=== PATIENT | female | born 1960 | race Caucasian/White ===

== ENCOUNTER 2017-11-03 00:17 | Emergency (ER) | payer MEDICAID ==
[2017-11-03] MEDS: LIDOCAINE/MYLANTA 40 ML BTL PO (03:34)
[2017-11-03] MEDS: FAMOTIDINE 20 MG TAB PO (03:37)
== END 2017-11-03 04:14 | disposition home or self-care (01) ==
LOC: E/R 00:17
DX: K29.50 Unspecified chronic gastritis without bleeding (principal)
CPT/HCPCS: 99283; Z7502